=== PATIENT | female | born 1995 | race Caucasian/White ===

== ENCOUNTER → 2018-06-12 | Outpatient (REF) | payer BC ==
[~2018-06-12] MED LIST: AMOX-559 PO; NORG1TAB74 PO
[2018-06-12 18:09] LABS: PLATELET COUNT, AUTOMATED 303 K/uL (150-450)
== END ==
LOC: ZZSTITCHES 17:04
PROVIDERS: ATTEND Physician Assistant
DX: R10.11 Right upper quadrant pain (principal); R10.13 Epigastric pain; R11.0 Nausea
CPT/HCPCS: 36415; 82040; 82247; 82310; 82374; 82435; 82565; 82947; 83690; 84075; 84132; 84155; 84295; 84450; 84460; 84520; 85025

== ENCOUNTER → 2018-06-23 | Outpatient (CLI) | payer BC ==
[~2018-06-23] MED LIST changes: +DOXY-179 PO
== END ==
LOC: LAB 13:50
PROVIDERS: ATTEND Nurse Practitioner Primary Care
DX: N89.8 Other specified noninflammatory disorders of vagina (principal)
CPT/HCPCS: 87210

== ENCOUNTER → 2018-06-25 | Outpatient (CLI) | payer BC | LOC: LAB 13:17 | PROVIDERS: ATTEND Nurse Practitioner Primary Care | DX: R30.0 Dysuria (principal) | CPT/HCPCS: 81025; 87491; 87591 ==

== ENCOUNTER → 2018-09-22 | Outpatient (CLI) | payer BC ==
[~2018-09-22] MED LIST changes: +FERR325T24 PO; +OMEP40CA48 PO
[2018-09-22 08:54] LABS: PLATELET COUNT, AUTOMATED 296 K/uL (150-450)
== END ==
LOC: LAB 08:37
PROVIDERS: ATTEND Nurse Practitioner Primary Care
DX: E61.1 Iron deficiency (principal)
CPT/HCPCS: 36415; 82728; 83540; 83550; 85025

== ENCOUNTER → 2018-10-23 | Outpatient (CLI) | payer BC ==
[~2018-10-23] MED LIST changes: +PANT40TA65 PO
[2018-10-23 12:19] LABS: PLATELET COUNT, AUTOMATED 312 K/uL (150-450)
== END ==
LOC: LAB 11:39
PROVIDERS: ATTEND Nurse Practitioner Primary Care
DX: R10.30 Lower abdominal pain, unspecified (principal); E61.1 Iron deficiency
CPT/HCPCS: 36415; 82040; 82247; 82310; 82374; 82435; 82565; 82728; 82947; 83540; 83550; 84075; 84132; 84155; 84295; 84450; 84460; 84520; 85025

== ENCOUNTER 2018-11-03 18:02 | Emergency (ER) | payer OTHER, BC ==
[~2018-11-03 18:02] MED LIST changes: +ESOM40CA42 PO
[2018-11-03 18:12] VITALS: BP 129/71
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
[2018-11-03] MEDS ORDERED: KET10 PO (20:15)
[2018-11-03] MEDS ORDERED: CYCL10TA29 PO (20:15)
== END 2018-11-03 20:43 | disposition home or self-care (01) ==
LOC: ER 18:20
DX: S13.4XXA Sprain of ligaments of cervical spine, initial encounter (principal); V49.60XA Unspecified car occupant injured in collision with unspecified motor vehicles in traffic accident, initial encounter
CPT/HCPCS: 70450; 72125; 72128; 72131; 81025; 99284; L0172